=== PATIENT | female | born 1995 | race Caucasian/White ===

== ENCOUNTER 2017-12-16 15:15 | Observation (INO) | payer MEDICARE ==
[2017-12-16 19:20] VITALS: BP_SYST 106
== END 2017-12-16 17:15 | disposition home or self-care (01) ==
LOC: SPU 15:15 → UNDOADMOB 15:15 → SPU 15:55
PROVIDERS: ADMIT Specialist; ATTEND Specialist
DX: O26.893 Other specified pregnancy related conditions, third trimester (principal); R51 Headache; Z3A.37 37 weeks gestation of pregnancy
CPT/HCPCS: 59025; 81002; G0378

== ENCOUNTER 2021-12-21 12:41 | Emergency (ER) | payer MEDICAID, MEDICARE ==
[~2021-12-21] VITALS: Ht 157.5 cm; Wt 73.5 kg
--- NOTE | 2021-12-21 13:00 | NUR ---
Patient to ER bed 05 to gown for evaluation. Side rails up.
[2021-12-21 13:01] VITALS: BP_SYST 111
--- NOTE | 2021-12-21 13:05 | NUR ---
Pt bib self from home. CC dizziness. Pt c/o severe dizziness onset 2 days. Denies SOB denies numbness, tingling, Pt states headache is slight. Pt has no past medical history. Currently . No last known Menstral period.
--- NOTE | 2021-12-21 13:09 | NUR ---
Pt ambulates with steady gait to the restroom.
[2021-12-21] MEDS ORDERED: MECL-160 PO (13:25)
[2021-12-21 13:33] VITALS: BP_SYST 111
== END 2021-12-21 13:33 | disposition home or self-care (01) ==
LOC: SED 12:41
DX: H81.10 Benign paroxysmal vertigo, unspecified ear (principal); Z79.899 Other long term (current) drug therapy
CPT/HCPCS: 99282